=== PATIENT | female | born 1995 | race Caucasian/White ===

== ENCOUNTER 2018-03-19 14:55 | Emergency (ER) | payer OTHER, MEDICAID ==
[~2018-03-19] VITALS: Ht 157.5 cm; Wt 74.8 kg
[2018-03-19] MEDS ORDERED: AMOXICILLIN 50500 MG PO (15:06)
[2018-03-19] MEDS ORDERED: ACETAMINOPHEN-1 EAC1 PO (15:06)
[2018-03-19] MEDS ORDERED: EFFEXOR 5050 MG/1 T1 PO (15:07)
[2018-03-19] MEDS ORDERED: NEURONTIN600 MG PO (15:07)
[2018-03-19] MEDS ORDERED: SEROQUEL 50 MG50 MG PO (15:08)
[2018-03-19] MEDS ORDERED: EFFEXOR XR75 MG PO (15:08)
[2018-03-19] MEDS ORDERED: CLEOCIN HCL150 MG PO (16:21)
[2018-03-19] MEDS ORDERED: TRAMADOL 50 MG50 MG PO (16:23)
[2018-03-19 16:57] VITALS: BP 132/79
== END 2018-03-19 16:58 | disposition home or self-care (01) ==
LOC: M.ERS 14:55
DX: K04.7 Periapical abscess without sinus (principal); G89.18 Other acute postprocedural pain; F17.210 Nicotine dependence, cigarettes, uncomplicated; F31.9 Bipolar disorder, unspecified